=== PATIENT | female | born 1955 | race Caucasian/White ===

== ENCOUNTER 2020-06-19 08:21 | Outpatient (REF) | payer OTHER, SELFPAY ==
--- NOTE | ~2020-06-19 | US_ITS ---
EXAMINATION: US ABDOMEN LIMITED CLINICAL INFORMATION: Right upper quadrant pain. COMPARISON: None. TECHNIQUE: Real-time imaging of the right upper quadrant abdominal viscera. FINDINGS: PANCREAS: Normal. LIVER: There is mild increased liver parenchymal echogenicity. The liver is normal in size. The liver contour is normal. No focal hepatic lesion. There is no intrahepatic biliary duct dilatation seen. GALLBLADDER: Normal. The gallbladder is physiologically distended without evidence of stones, sludge, polyps, wall thickening or pericholecystic fluid. COMMON BILE DUCT: Normal in caliber measuring 0.4 cm in diameter. RIGHT KIDNEY: Normal. No hydronephrosis. No renal calculi or focal parenchymal lesions. The kidney measures 12.0 cm in maximum dimension. FREE FLUID: None. US/US abdomen limited IMPRESSION: Mild hepatic steatosis. No focal lesion seen.
[2020-06-19 11:35] LABS: Glucose Urine UA NEG (NEG); Leukocyte Esterase Urine TRACE (NEG); Nitrite Urine NEG (NEG); Urine Blood NEG (NEG); Urine Ketones NEG (NEG); Urine Protein NEG (NEG-TRACE)
[2020-06-19 11:39] LABS: Appearance Urine HAZY; Color Urine YELLOW
[2020-06-19 11:45] LABS: Mucus Urine 1+ /LPF; RBC Urine 0 /HPF (0); Renal Epithelial Cells Urine 1+ /LPF; Squamous Epithelial Cell Urine 1+ /LPF
== END 2020-06-19 08:22 | disposition home or self-care (01) ==
LOC: HO.HMGCX 08:21
PROVIDERS: PCP Internal Medicine; Visit Provider Internal Medicine
DX: R10.11 Right upper quadrant pain (principal)
CPT/HCPCS: 76705; 81001

== ENCOUNTER 2020-12-23 08:21 | Outpatient (REF) | payer MEDICARE, MEDICAID, SELFPAY ==
[2020-12-23 11:27] LABS: MANUAL DIFF FLAG NO
[2020-12-23 11:37] LABS: Basophils Percent Auto 0.8 % (0-2); Eosinophils Absolute Auto 0.1 X10*3/uL (0.0-0.4); Eosinophils Percent Auto 1.8 % (0-4); Hematocrit 42.8 % (37-47); Hemoglobin 14.1 g/dl (12.0-16.0); Imm Gran Abs Auto 0.02 X10*3/uL (0.00-0.03); Imm Gran Pct Auto 0.4 % (0.0-0.4); Lymphocytes Absolute Auto 1.3 X10*3/uL (1.2-4.9); Lymphocytes Percent Auto 25.9 % (20-40); Mean Corpuscular HGB Conc 32.9 g/dl (31.0-35.0); Mean Corpuscular Hemoglobin 28.5 pg (27.0-33.0); Mean Corpuscular Volume 86.6 fL (80-98); Mean Platelet Volume 10.8 fL (9.4-12.3); Monocytes Absolute Auto 0.4 X10*3/uL (0.1-1.2); Monocytes Percent Auto 8.4 % (2-11); Neutrophils Absolute Auto 3.2 X10*3/uL (2.0-8.3); Neutrophils Percent Auto 62.7 % (45-73); Platelet Count 204 X10*3/uL (160-400); Red Blood Count 4.94 X10*6/uL (4.20-5.50); Red Cell Distribution Width 13.2 % (11.0-16.0); White Blood Count 5.1 X10*3/uL (4.8-10.8)
[2020-12-23 12:03] LABS: Free T4 (Free Thyroxine) 1.08 ng/dL (0.71-1.85); Thyroid Stimulating Hormone 2.28 uIU/mL (0.32-4.0); Vitamin D 25-OH Total 35.6 ng/mL (>30)
[2020-12-23 12:06] LABS: Alanine Aminotransferase 13 U/L (0-31); Albumin Level 4.3 g/dL (3.5-5.0); Alkaline Phosphatase 72 U/L (39-117); Anion Gap 14 (12-20); Aspartate Amino Transferase 16 U/L (5-31); Bilirubin Total 0.5 mg/dL (0.0-1.0); Blood Urea Nitrogen 12 mg/dL (9-16); Calcium 9.5 mg/dL (8.4-10.2); Carbon Dioxide 25 mmol/L (22-29); Chloride 107 mmol/L (96-108); Cholesterol 213 mg/dL; Estimated Glomerular Filt Rate > 60; Glucose Random 91 mg/dL (60-115); HDL Cholesterol 64 mg/dL; LDL Cholesterol Calculated 128 mg/dl; Potassium 4.4 mmol/L (3.3-5.1); Sodium 142 mmol/L (135-145); Total Protein 6.4 g/dL (6.5-8.0); Triglycerides 105 mg/dL
[2020-12-23 12:25] LABS: Folate 11.2 ng/mL (> or = 4.0); Vitamin B12 730 pg/mL (200-900)
== END 2020-12-23 08:22 | disposition home or self-care (01) ==
LOC: HO.HMGCLDS 08:21
PROVIDERS: PCP Internal Medicine; Visit Provider Internal Medicine
DX: I10 Essential (primary) hypertension (principal); K21.9 Gastro-esophageal reflux disease without esophagitis; E78.00 Pure hypercholesterolemia, unspecified
CPT/HCPCS: 36415; 80053; 80061; 82306; 82607; 82746; 84439; 84443; 85025

== ENCOUNTER 2021-03-17 10:07 | Outpatient (REF) | payer MEDICARE, MEDICAID, SELFPAY ==
--- NOTE | ~2021-03-17 | MM_ITS ---
EXAMINATION: MM SCREENING DIGITAL BREAST TOMOSYNTHESIS, BILATERAL CLINICAL INFORMATION: Screening. Asymptomatic. The lifetime risk of breast cancer based on the Tyrer-Cuzick Model is 8%. COMPARISON: Mammography: 09/28/2019, 03/31/2018, 03/09/2017 TECHNIQUE: Digital breast tomosynthesis is performed in both the craniocaudal and mediolateral oblique views along with computer-aided detection (CAD). Synthesized 2D images are generated from the tomosynthesis. Additional left MLO view is provided. FINDINGS: There are scattered areas of fibroglandular density (ACR BI-RADS breast composition Category b). There are no significant masses, abnormal calcifications, or other abnormalities. No developing density. No significant changes. MM/MM tomosynthesis screening BI IMPRESSION: No mammographic evidence of malignancy. ASSESSMENT: BI-RADS 1: Negative RECOMMENDATION: Routine annual mammography screening. This patient's information was entered into a reminder system with a target due date for their next mammogram.
== END 2021-03-17 10:08 | disposition home or self-care (01) ==
LOC: HO.MAMMO 10:07
PROVIDERS: PCP Internal Medicine; Visit Provider Internal Medicine
DX: Z12.31 Encounter for screening mammogram for malignant neoplasm of breast (principal)
CPT/HCPCS: 77063; 77067

== ENCOUNTER 2021-07-04 11:23 | Outpatient (REF) | payer MEDICARE, MEDICAID, SELFPAY ==
--- NOTE | ~2021-07-04 | US_ITS ---
EXAMINATION: US THYROID CLINICAL INFORMATION: Thyroid nodule. COMPARISON: Thyroid ultrasound 02/05/2016 and 01/29/2015. TECHNIQUE: Linear transducer grayscale and color Doppler examination with attention to the region of the thyroid. FINDINGS: SIZE: Measurements of the thyroid lobes and nodules are given in sagittal, anteroposterior and transverse dimensions respectively. Right Thyroid Lobe: 5.1 x 1.2 x 1.7 cm, volume 5.5 mL. Previously 4.9 x 1.1 x 1.8 cm, volume 5.2 mL. Parenchyma: The gland echotexture is homogeneous. Thyroid vascularity is normal. Left Thyroid Lobe: 5.4 x 1.0 x 1.6 cm, volume 4.5 mL. Previously 5.0 x 1.0 x 1.8 cm, volume 4.5 mL. Parenchyma: The gland echotexture is homogeneous. Thyroid vascularity is normal. Isthmus: 0.2 cm in maximum AP dimension. Previously 0.3 cm. Estimated total number of nodules greater than or equal to 1 cm: 0. Drug Regulatory Affairs Specialist nodules are described as follows: 1. Location: Right lower pole. Size: 0.5 x 0.2 x 0.4 cm, volume 0.02 mL. Previously: 0.3 x 0.2 x 0.2 cm, volume 0.01 mL. Nodule characteristics: Composition: Spongiform (0). ACR TI-RADS total points: 0 ACR TI-RADS category: 1 Significant change in size (>/= 20% in 2 dimensions and minimal increase of 2 mm or 50% or greater increase in volume): Change in features: Change in ACR TI-RADS risk category: 2. Location: Left lateral lower pole. Size: 0.4 x 0.2 x 0.3 cm, volume 0.02 mL. Previously: 0.2 x 0.2 x 0.3 cm, volume 0.01 mL. Nodule characteristics: Composition: Spongiform (0). ACR TI-RADS total points: 0 ACR TI-RADS category: 1 Significant change in size (>/= 20% in 2 dimensions and minimal increase of 2 mm or 50% or greater increase in volume): Change in features: Change in ACR TI-RADS risk category: NODES: No lymphadenopathy is seen in the tissue surrounding the thyroid gland. US/US thyroid IMPRESSION: 2 small thyroid nodules not appreciably changed from prior exam. ACR TI-RADS RECOMMENDATION REFERENCE: Ultrasound-guided fine-needle aspiration, followup ultrasound, no further follow up. * TR1 (0 point) and TR 2 (2 points): No FNA or follow up * TR3 (3 points): FNA if more than or equal to 2.5 cm in maximum dimension, followup ultrasound in 1, 3 and 5 years if 1.5 to 2.4 cm in maximum dimension. * TR4 (4-6 points): FNA if more than or equal to 1.5 cm in maximum dimension, followup ultrasound in 1, 2, 3 and 5 years if 1 to 1.4 cm in maximum dimension. * TR5 (more than or equal to 7 points): FNA if more than or equal to 1 cm in maximum dimension, followup ultrasound every year for 5 years if 0.5 to 0.9 cm in maximum dimension. * TR3, TR4 or TR5 nodules that are below the size threshold for follow up receive no follow up.
== END 2021-07-04 11:24 | disposition home or self-care (01) ==
LOC: HO.HMGCX 11:23
PROVIDERS: Visit Provider Internal Medicine
DX: E04.1 Nontoxic single thyroid nodule (principal); M85.80 Other specified disorders of bone density and structure, unspecified site
CPT/HCPCS: 76536

== ENCOUNTER 2021-07-04 14:12 | Outpatient (REF) | payer MEDICARE, MEDICAID, SELFPAY ==
--- NOTE | ~2021-07-04 | MM_ITS ---
EXAMINATION: BONE DENSITOMETRY CLINICAL INDICATION: Osteoporosis. COMPARISON: Previous BD dated 09/28/2019 and baseline BD dated 01/22/2012. TECHNIQUE: Using a [employer] DXA System (software version: 13.1) manufactured by [employer], dual-energy x-ray absorptiometry was performed of the lumbar spine and left hip. The images are of good technical quality. Summary results are attached. FINDINGS: AP SPINE L1-L4: Current: BMD 1.114 g/cm2, Z-score 1.2, T-score -0.6, normal, 2.6% decrease from previous, 10.2% decrease from baseline (<5% change is not significant). Prior: BMD 1.144 g/cm2. Baseline: BMD 1.241 g/cm2. LEFT FEMUR, NECK: Current: BMD 0.689 g/cm2, Z-score -0.9, T-score -2.5, osteoporosis. Prior: BMD 0.705 g/cm2. Baseline: BMD 0.809 g/cm2. LEFT FEMUR, TOTAL: Current: BMD 0.817 g/cm2, Z-score -0.2, T-score -1.5, osteopenia, 0.1% decrease from previous, 12.5% decrease from baseline (<5% change is not significant). Prior: BMD 0.818 g/cm2. Baseline: BMD 0.934 g/cm2. IDENTIFIED RISK FACTORS: Menopause, right oophorectomy. HISTORY OF FRACTURE: None listed. MEDICATIONS: Calcium, vitamin D. MM/XR DEXA axial skeleton IMPRESSION: 1. DIAGNOSIS: Osteoporosis based on the lowest T-score value of -2.5 in the femoral neck applying World Health Organization criteria. 2. 10-YEAR FRACTURE RISK PREDICTION, FRAX: According to the guidelines, FRAX calculation should only be performed on patients in the osteopenia bone density category. Therefore, FRAX was not performed on this patient. 3. Treatment Recommendations: NOF guidelines recommend consideration for treatment in postmenopausal women and men age 50 and older presenting with the following: -A hip or vertebral (clinical or morphometric) fracture. -T-score less than or equal to -2.5 at the femoral neck or spine after appropriate evaluation to exclude secondary causes. -Low bone mass at the hip or spine and a 10-year fracture probability by FRAX of greater than or equal to 3% for hip fracture or greater than or equal to 20% for major osteoporotic fracture based on the [place] adapted WHO algorithm. 4. Other Recommendations: All treatment decisions require clinical judgment and consideration of individual patient factors, including patient preferences, comorbidities, previous drug use, risk factors not captured in the FRAX model (e.g. frailty, falls, vitamin D deficiency, increased bone turnover, interval significant decline in bone density) and possible under or overestimation of fracture risk by FRAX. Additional medical evaluation for secondary cause of low bone mineral density may be appropriate. FUTURE SCAN RECOMMENDATION: People with diagnosed cases of osteoporosis or at high risk for fracture should have regular bone mineral density tests. For patients eligible for Medicare, routine testing is allowed once every 2 years. The testing frequency can be increased to one year for patients who have rapidly progressing disease, those who are receiving or discontinuing medical therapy to restore bone mass, or have additional risk factors.
== END 2021-07-04 14:13 | disposition home or self-care (01) ==
LOC: HO.MAMMO 14:12
PROVIDERS: Visit Provider Internal Medicine
DX: Z13.820 Encounter for screening for osteoporosis (principal); M81.0 Age-related osteoporosis without current pathological fracture; Z78.0 Asymptomatic menopausal state; Z98.890 Other specified postprocedural states
CPT/HCPCS: 77080

== ENCOUNTER 2022-05-14 14:22 | Outpatient (REF) | payer MEDICARE, MEDICAID, SELFPAY ==
--- NOTE | ~2022-05-14 | MM_ITS ---
EXAMINATION: MM SCREENING DIGITAL BREAST TOMOSYNTHESIS, BILATERAL CLINICAL INFORMATION: Screening. Asymptomatic. The lifetime risk of breast cancer based on the Tyrer-Cuzick Model is 8.0%. COMPARISON: Mammography: 03/17/2021 and studies dating back to 02/21/2016. TECHNIQUE: Digital breast tomosynthesis is performed in both the craniocaudal and mediolateral oblique views along with computer-aided detection (CAD). Synthesized 2D images are generated from the tomosynthesis. FINDINGS: There are scattered areas of fibroglandular density (ACR BI-RADS breast composition Category b). LEFT BREAST: There is a stable parenchymal pattern within the left breast. RIGHT BREAST: Within the inferior medial aspect of the right breast there is a 4 cm ill-defined density with a single calcification within it approximately 5 cm from the nipple for which spot compression views are recommended. MM/MM tomosynthesis screening BI IMPRESSION: Right breast density for further evaluation. ASSESSMENT: BI-RADS 0: Incomplete - Need Additional Imaging Evaluation RECOMMENDATION: 1. Additional views of the right breast. 2. Targeted ultrasound if warranted after review of the additional views. 3. Radiology department staff will contact the patient for additional imaging.
== END 2022-05-14 14:23 | disposition home or self-care (01) ==
LOC: HO.MAMMO 14:22
PROVIDERS: Visit Provider Internal Medicine
DX: Z12.31 Encounter for screening mammogram for malignant neoplasm of breast (principal)
CPT/HCPCS: 77063; 77067

== ENCOUNTER 2022-06-03 13:12 | Outpatient (REF) | payer MEDICARE, MEDICAID, SELFPAY ==
--- NOTE | ~2022-06-03 | MM_ITS ---
EXAMINATION: MM DIAGNOSTIC DIGITAL BREAST TOMOSYNTHESIS, RIGHT US BREAST, TARGETED, RIGHT CLINICAL INFORMATION: Question density inferior medial aspect of the right breast. COMPARISON: Mammography: 05/14/2022 and studies dating back to 09/11/2013. TECHNIQUE: Digital breast tomosynthesis is performed. 2D images are generated from the tomosynthesis. The following views are obtained: Spot compression views of the right breast in craniocaudal and 90 degree mediolateral views. FINDINGS: MAMMOGRAM: There are scattered areas of fibroglandular density (ACR BI-RADS breast composition Category b). Spot compression view of the right breast in 90 degree mediolateral view demonstrates a density which is well-circumscribed with what appears be slightly lobular appearance however this also appears be related to a turn of vessels on tomosynthesis view. On craniocaudal view there is a question of a single calcification about a faintly seen density which is adjacent to the vessels but which may represent parenchyma rather than a mass. ULTRASOUND: Targeted right breast ultrasound about the inferior medial aspect 5 o'clock approximately 3 cm from the nipple a well-circumscribed hypoechoic structure measuring 3 x 2 x 2 mm in size which is wider than it is tall without internal vasculature. No sound enhancement. No significant distal sound shadowing is appreciated about the smooth back wall. This may represent a cystic structure but is too small to characterize as to whether it is a cyst or solid structure. This may or may not correspond to the mammographic finding. Recommend 6 month follow-up right breast mammogram with targeted ultrasound evaluation to ensure stability. Results are discussed with the patient at time of visit. MM/MM tomosynthesis added views R IMPRESSION: Right breast density for 6 month follow-up study as described. ASSESSMENT: BI-RADS 3: Probably Benign RECOMMENDATION: Diagnostic mammography and ultrasound in 6 months. This patient's information was entered into a reminder system with a target due date for their next mammogram.
== END 2022-06-03 13:13 | disposition home or self-care (01) ==
LOC: HO.MAMMO 13:12
PROVIDERS: Visit Provider Internal Medicine
DX: R92.2 Inconclusive mammogram (principal)
CPT/HCPCS: 76642; 77061; 77065

== ENCOUNTER → 2022-09-23 12:58 | Outpatient (BNVA) | payer MEDICARE, MEDICAID, SELFPAY | PROVIDERS: PCP Internal Medicine; Visit Provider Obstetrics & Gynecology | DX: Z01.419 Encounter for gynecological examination (general) (routine) without abnormal findings (principal); M81.0 Age-related osteoporosis without current pathological fracture; E55.9 Vitamin D deficiency, unspecified; Z90.721 Acquired absence of ovaries, unilateral; Z78.0 Asymptomatic menopausal state | CPT/HCPCS: 99202; G0101 ==

== ENCOUNTER 2022-11-16 17:21 | Outpatient (AMB) | payer MEDICARE, MEDICAID, SELFPAY ==
--- NOTE | 2022-11-16 17:38 | A.OFFVIS_ITS ---
Intake Vital Signs 11/16/22 17:39 Height 5 ft 6 in Weight 135 lb BMI 21.8 BP 138/76 Blood Pressure Location Lt brachial Position Sitting Pulse 79 Pulse Source Pulse Oximeter Pulse Oximetry (%) 98 Oxygen Delivery Method Room Air Intake Visit Reasons: AWV Allergies codeine Allergy (Unknown, Verified 11/16/22 17:40) Unknown Medication List - Last Reconciled 11/16/22 by Kenneth Gomez MD cholecalciferol (vitamin D3) 25 mcg PO DAILY famotidine (Pepcid) 20 mg PO BEDTIME PRN hydrocortisone 2.5% (Proctosol HC) 1 appl HI BID-QID PRN loratadine (Claritin) 10 mg PO DAILY vitamin B complex 1 tab PO DAILY HPI AWV HPI Details 67-year-old female with GERD hypertension osteopenia thyroid nodule coming in for annual well visit patient was last seen in May 2021. Cologuard is up-to-date mammograms up-to-date bone density date June 2021 patient has osteoporosis. derm skin cancer seeing dermatology [facility] mohs surgery scalp. decline pneumonia shot PFSH Medical History (Updated 11/16/22 @ 17:58 by Kenneth Gomez MD) Annual physical exam Annual physical exam Anxiety Breast cancer screening Colon cancer screening Colonoscopy refused GERD (gastroesophageal reflux disease) Hemorrhoid Hypertension Osteopenia Osteopenia RUQ abdominal pain Thyroid nodule Vitamin D deficiency Well woman exam Surgical History History of right oophorectomy Family History Father Hypertension Mother Breast cancer Colon cancer Sister Ovarian cancer Maternal Grandmother Myocardial infarction Maternal Grandfather Myocardial infarction Paternal Uncle Myocardial infarction Social History Housing: House Alcohol intake: never Patient Tobacco Use Status: Former Tobacco user Tobacco use type: Cigarette Years Smoked: quit 1982 e-Cigarette/Vaping Use: Never Used Second Hand Smoke Exposure: No service: No Current occupational status: retired Female Reproductive History Menstrual Age of Menarche: 14 Questionnaire Medicare Wellness Checkup What [age] 65-69 What gender do you identify with?: female During the past 4 weeks, how much have you been bothered by emotional problems such as feeling anxious, depressed, irritable, sad or downhearted, and blue?: not at all During the past 4 weeks, has your physical & emotional health limited your social activities with family, friends, neighbors, or groups?: not at all During the past 4 weeks, how much bodily pain have you generally had?: no pain During the past 4 weeks, was someone available to help you if you needed & wanted help?: yes, as much as I wanted During the past 4 weeks, what was the hardest physical activity you could do for at least 2 minutes?: very heavy Can you get to places out of walking distance without help? (For eg., can you travel alone on buses, taxis or drive your car?): Yes Can you go shopping for groceries or clothes without someone's help?: Yes Can you prepare your own meals?: Yes Can you do your housework without help?: Yes Because of any health problems, do you need the help of another person with your personal care needs such as eating, bathing, dressing or getting around the house?: No Can you handle your own money without help?: Yes During the past 4 weeks, how would you rate your health in general?: excellent During the past 4 weeks how have things been going for you?: very well; could hardly better Are you having difficulties driving your car?: yes, often Do you always fasten your seat belt when you are in a car?: yes, usually During past 4 weeks, have you been bothered by the following: never: Falling or dizzy when standing up, Sexual problems?, Trouble eating well?, Teeth or denture problems?, Problems using the telephone? and Tiredness or fatigue? Have you fallen 2 or more times in the past year?: No Are you afraid of falling?: No Are you a smoker?: no During the past 4 weeks, how many drinks of wine, beer, or other alcoholic beverages did you have?: 1 drink or less per week Do you exercise for about 20 minutes 3 or more times a week?: yes, all the time Have you been given information to help with the following?: no: Hazards in your house that might hurt you? and no: Keeping track of your medications? How often do you have trouble taking medicines the way you have been told to take them?: I do not have to take medicine How confident are you that you can control & manage most of your health problems?: very confident What is your race?: White PHQ-9 Over the last 2 weeks, how often have you been bothered by any of the following problems? 1. Little interest or pleasure in doing things: not at all 2. Feeling down, depressed, or hopeless: not at all 3. Trouble falling or staying asleep, or sleeping too much: not at all 4. Feeling tired or having little energy: not at all 5. Poor appetite or overeating: not at all 6. Feeling bad about yourself - or that you are a failure or have let yourself or your family down: not at all 7. Trouble concentrating on things, such as reading the newspaper or watching television: not at all 8. Moving or speaking so slowly that other people could have noticed. Or the opposite - being so fidgety or restless that you have been moving around a lot more than usual: not at all 9. Thoughts that you would be better off or of hurting yourself in some way: not at all Total score: 0 Depression Screening Interpretation: Negative Source: Developed by Drs. Binu Bolanos, Jordyn Blanchard, Casey Macias and colleagues, with an educational sharif from [employer]. Thrive Questionnaire Date Thrive assessed: 11/16/22 I am a: Patient What is your living situation today?: I have a steady place to live Within the past 12 months, did the food you bought not last and you didn't have the money to get more?: Never true Within the past 12 months, did you worry whether your food would run out before you got money to buy more?: Never true Do you have trouble paying for medicines?: No Do you have trouble getting transportation to medical appointments?: No Do you have trouble paying your heating and electricity bill?: No Do you have trouble taking care of your child, family member or friend?: No Do you have trouble with day-to-day activities such as bathing, preparing meals, shopping, managing finances, etc.?: No Are you currently unemployed and looking for a job?: No Are you interested in more education?: No Currently or been in a relationship where the following occur: no concerns reported MILAN-7 AMB Questionnaire MILAN-7 Date MILAN - 7 assessed: 11/16/22 Feeling nervous, anxious, or on edge: 0 = Not at all Not being able to stop or control worryin = Not at all Worrying too much about different things: 0 = Not at all Trouble relaxin = Not at all Being so restless that it is hard to sit still: 0 = Not at all Becoming easily annoyed or irritable: 0 = Not at all Feeling afraid as if something awful might happen: 0 = Not at all Total MILAN-7 score (0-4 normal; 5-9 mild; 10-14 moderate; 15-21 severe): 0 Source: Developed by Drs. Binu Bolanos, Jordyn Blanchard, Casey Macias and colleagues, with an educational sharif from [employer]. Review of Systems Const Denies poor appetite and Denies weakness Eyes Denies no additional complaints ENT Reports Normal hearing present, Denies dizziness, Denies nasal congestion, Denies tinnitus and Denies sore throat Card Denies chest pain, Denies syncope, Denies rapid heart rate and Denies dyspnea Resp Denies cough and Denies dyspnea GI Denies change in stool character, Reports constipation, Denies diarrhea, Denies nausea and Denies vomiting Denies urinary frequency, Denies difficulty voiding and Denies dysuria Neuro Reports Normal hearing present, Denies confusion, Denies dizziness, Denies syncope and Denies weakness Psych Denies confusion Physical Exam Vital Signs: Last Vital Signs Pulse 79 11/16/22 17:39 BP 138/76 11/16/22 17:39 Pulse Ox 98 11/16/22 17:39 Oxygen Delivery Method Room Air 11/16/22 17:39 BMI result Body Mass Index 21.8 Const General: No confusion Orientation/consciousness: No confusion HEENT Head: Yes normocephalic Ears: external ears normal and TM's normal bilaterally Face and sinus: Yes normal facial exam Mouth: moist mucous membranes Throat: Yes tonsils normal Eyes Conjunctivae: conjunctivae normal Pupils: Equal, round and reactive pupils present and Pupil accommodation reflex normal Direct Ophthalmoscopy: normal light reflex Neck Neck: No lymphadenopathy Thyroid: Thyroid normal Chest Chest palpation & inspection: normal inspection of the chest Resp Effort & Inspection: normal respiratory effort and no audible wheezes Auscultation: clear to auscultation bilaterally, no crackles, no wheezes and lung sounds not diminished Cardio Rate: regular rate Rhythm: regular rhythm Peripheral pulses: radial pulses present and dorsalis pedis present GI Palpation (GI): no masses Auscultation: normal bowel sounds and normoactive bowel sounds Rectal Exam - Female: deferred Skin General skin exam: no rashes or lesions noted Rashes: no rashes Neuro General: No confusion Cranial nerves: Yes Equal, round and reactive pupils present and Yes Normal hearing present Cognition (Neuro): normal cognition Gait exam (Neuro): Normal gait present Motor exam (neuro): 5/5 motor strength present throughout Deep tendon reflexes (DTR's): Right brachioradialis reflex intensity grade: 2+, Left brachioradialis reflex intensity grade: 2+, Right patellar reflex intensity grade: 2+ and Left patellar reflex intensity grade: 2+ Extrem General: No edema Assessment & Plan Assessment & Plan (1) Medicare annual wellness visit, initial: Code(s): Z00.00 - Encounter for general adult medical examination without abnormal findings (2) Osteoporosis: Comment: June 2021 Code(s): M81.0 - Age-related osteoporosis without current pathological fracture Plan: June 2021 discussed about treatment of osteoporosis (3) Thyroid nodule: Comment: 2015 no suspicious lesion June 2021 no change Code(s): E04.1 - Nontoxic single thyroid nodule Plan: Stable on repeat ultrasound (4) Cervical cancer screening: Code(s): Z12.4 - Encounter for screening for malignant neoplasm of cervix Plan: Reminded about cervical cancer screening (5) GERD (gastroesophageal reflux disease): Code(s): K21.9 - Gastro-esophageal reflux disease without esophagitis Qualifiers: Esophagitis presence: without esophagitis Qualified Code(s): K21.9 - Gastro-esophageal reflux disease without esophagitis Plan: Avoid the foods that causes that usually spicy foods, tomato products, juices, coffee, soda and foods that your sensitive to. After eating do not lie down, allow 3-4 hours before in lie down. And keep the head of bed above 30 degrees to avoid the acid from going up. (6) Hypertension: Code(s): I10 - Essential (primary) hypertension Qualifiers: Hypertension type: essential hypertension Qualified Code(s): I10 - Essential (primary) hypertension Plan: Blood pressure is under control without any medication Orders: Orders Vitamin B12 and Folate Today E04.1 - Nontoxic single thyroid nodule Comprehensive Met. Panel Today M81.0 - Age-related osteoporosis without current pathological fracture Lipid Panel Today E04.1 - Nontoxic single thyroid nodule, E78.00 - Pure hypercholesterolemia, unspecified Free T4 (Free Thyroxine) Today M81.0 - Age-related osteoporosis without current pathological fracture Thyroid Stimulating Hormone Today M81.0 - Age-related osteoporosis without current pathological fracture Vitamin D 25-OH Total Today E04.1 - Nontoxic single thyroid nodule Complete Blood Count Auto Diff Today M81.0 - Age-related osteoporosis without current pathological fracture Quality Reporting (2020) Depression/Bipolar (159/160/161/177) PHQ-9: Total score: 0 Coding Level of Care Code Medicare First (G0438) Diagnoses Medicare annual wellness visit, initial Z00.00 Osteoporosis M81.0 Thyroid nodule E04.1 Cervical cancer screening Z12.4 GERD (gastroesophageal reflux disease) K21.9 Esophagitis presence: without esophagitis Hypertension I10 Hypertension type: essential hypertension
[2022-11-16 17:39] VITALS: BP 138/76; PULSE 79; O2SAT 98; BMI 21.8
== END 2022-11-16 18:23 | disposition home or self-care (01) ==
PROVIDERS: Visit Provider Internal Medicine
DX: Z00.00 Encounter for general adult medical examination without abnormal findings (principal); E04.1 Nontoxic single thyroid nodule; K21.9 Gastro-esophageal reflux disease without esophagitis; I10 Essential (primary) hypertension; M81.0 Age-related osteoporosis without current pathological fracture; Z12.4 Encounter for screening for malignant neoplasm of cervix
CPT/HCPCS: G0438

== ENCOUNTER 2023-01-04 14:19 | Outpatient (REF) | payer MEDICARE, MEDICAID, SELFPAY ==
--- NOTE | ~2023-01-04 | MM_ITS ---
EXAMINATION: MM DIAGNOSTIC DIGITAL BREAST TOMOSYNTHESIS, RIGHT US BREAST LIMITED, RIGHT MAMMOGRAPHY: CLINICAL INFORMATION: 6 month follow-up right breast nodule lower inner aspect, middle one third. COMPARISON: Mammography: Mammography dated 06/03/2022, and 05/14/2022. Ultrasound dated 06/03/2022. TECHNIQUE: Digital right breast tomosynthesis is performed in both the craniocaudal and mediolateral oblique views along with computer-aided detection (CAD). Synthesized 2D images are generated from the tomosynthesis. FINDINGS: There are scattered areas of fibroglandular density (ACR BI-RADS breast composition Category b). There are vascular calcifications again demonstrated. The parenchymal pattern is stable from prior exams. There is redemonstration of a small oval nodule with a central calcification seen at the 5:00 axis of the right breast, 3 cm from the nipple. It appears unchanged from prior exams dating back to 06/01/2022. It remains probably benign, and 6 month interval follow-up right breast mammography recommended. ULTRASOUND: CLINICAL INFORMATION: 6 month follow-up right breast complex cyst lower inner aspect, middle one third. COMPARISON: 06/03/2022, 05/14/2022. TECHNIQUE: Targeted sonographic evaluation was performed using a high frequency linear transducer. Attention was made to the 5:00 axis of the right breast, approximately 6 3 cm from the nipple. Selected archived documentation. FINDINGS: RIGHT BREAST: There is a stable oval minimally complicated cyst at the 5:00 axis of the right breast, 3 cm from the nipple, measuring a stable 3 x 3 x 2 mm. There is a central specular echo which may represent the calcifications seen centrally within the lesion on the corresponding mammogram. This has a probably benign appearance with good through transmission and no internal color flow. Recommend six-month interval follow-up right breast ultrasound with attention to this region to ensure stability. No additional findings identified. MM/MM tomosynthesis diagnostic RT IMPRESSION: Probably benign findings right breast on both mammography and ultrasonography. Six-month follow-up ultrasound and mammogram recommended of the right breast, 1 the patient is due for bilateral screening. OVERALL ASSESSMENT: Mammography: BI-RADS 3 - Probably benign finding(s) - 6 month follow-up suggested Ultrasound: BI-RADS 3 - Probably benign finding(s) - 6 month follow-up suggested RECOMMENDATION: 6 Month F/U Results were provided to the patient at time of visit by the technologist. This patient's information was entered into a reminder system with a target due date for their next mammogram.
== END 2023-01-04 14:20 | disposition home or self-care (01) ==
LOC: HO.MAMMO 14:19
PROVIDERS: Visit Provider Internal Medicine
DX: N63.14 Unspecified lump in the right breast, lower inner quadrant (principal)
CPT/HCPCS: 76642; 77061; 77065

== ENCOUNTER → 2023-01-04 14:30 | Outpatient (BNV) | payer MEDICARE, MEDICAID, SELFPAY | PROVIDERS: Visit Provider Radiology Diagnostic Radiology | DX: R92.1 Mammographic calcification found on diagnostic imaging of breast (principal) | CPT/HCPCS: 76642; 77061; 77065; G0279 ==

== ENCOUNTER 2023-07-06 13:48 | Outpatient (REF) | payer OTHER, SELFPAY ==
--- NOTE | ~2023-07-06 | MM_ITS ---
EXAMINATION: MM DIAGNOSTIC DIGITAL BREAST TOMOSYNTHESIS, BILATERAL US BREAST LIMITED, RIGHT MAMMOGRAPHY: CLINICAL INFORMATION: Six-month follow-up right breast complicated cyst lower inner aspect 4 x 3 x 2 mm, middle one third depth. Patient also due for bilateral screening. COMPARISON: Mammography: 01/04/2023, 06/03/2022, 03/27/2021, 04/29/2019, and dating back to 2017. TECHNIQUE: Digital breast tomosynthesis is performed in both the craniocaudal and mediolateral oblique views along with computer-aided detection (CAD). Synthesized 2D images are generated from the tomosynthesis. FINDINGS: There are scattered areas of fibroglandular density (ACR BI-RADS breast composition Category b). There are bilateral vascular calcifications, similar. In the lower inner right breast, middle one third, there is a similar low density focal asymmetry which is circumscribed, oval, contains a punctate calcification, consistent with the known small complicated cyst. This appears unchanged. Otherwise, no suspicious masses, suspicious grouped calcifications, or new areas of architectural distortion. Parenchymal pattern is unchanged from priors. No skin or axillary abnormalities. ULTRASOUND: CLINICAL INFORMATION: As above. COMPARISON: 06/03/2022 right breast ultrasound TECHNIQUE: Targeted sonographic evaluation was performed using a high frequency linear transducer. Attention was given to the 5:00 axis of the right breast in the region of known complicated cyst. Selected archived documentation. FINDINGS: RIGHT BREAST: -There is a stable 4 x 3 x 3 mm minimally complicated cyst with a solitary internal punctate calcification. This appears entirely unchanged. There is through transmission. There is no color vascular flow. There is no surrounding echogenic fat. This remains probably benign. One-year follow-up recommended. MM/MM tomosynthesis diagnostic BI IMPRESSION: There are no findings suspicious for malignancy in either breast. There is a stable minimally complicated cyst in the right breast 5:00 axis, 3 cm from nipple, measuring 4 x 3 x 3 mm. One-year follow-up targeted right breast ultrasound recommended when the patient is due for bilateral screening to establish two-year stability and benignity. OVERALL ASSESSMENT: Mammography: BI-RADS 3 - Probably benign finding(s) - 12 month follow-up suggested Ultrasound: BI-RADS 3 - Probably benign finding(s) - 12 month follow-up suggested RECOMMENDATION: 12 month diagnostic follow up Results were provided to the patient at time of visit by the technologist. This patient's information was entered into a reminder system with a target due date for their next mammogram.
== END 2023-07-06 13:49 | disposition home or self-care (01) ==
LOC: HO.MAMMO 13:48
PROVIDERS: PCP Internal Medicine; Visit Provider Internal Medicine
DX: R92.2 Inconclusive mammogram (principal)
CPT/HCPCS: 76642; 77062; 77066

== ENCOUNTER → 2023-07-06 14:00 | Outpatient (BNV) | payer OTHER, SELFPAY | PROVIDERS: PCP Internal Medicine; Visit Provider Radiology Diagnostic Radiology | DX: N60.01 Solitary cyst of right breast (principal); R92.323 Mammographic fibroglandular density, bilateral breasts; R92.1 Mammographic calcification found on diagnostic imaging of breast | CPT/HCPCS: 76642; 77066; G0279 ==

== ENCOUNTER 2023-09-10 08:23 | Outpatient (REF) | payer OTHER, SELFPAY ==
[2023-09-10 10:15] LABS: MANUAL DIFF FLAG NO
[2023-09-10 10:33] LABS: Basophils Percent Auto 0.6 % (0-2); Eosinophils Absolute Auto 0.1 X10*3/uL (0.0-0.4); Eosinophils Percent Auto 1.2 % (0-4); Hematocrit 43.3 % (37.0-47.0); Hemoglobin 14.2 g/dl (12.0-16.0); Imm Gran Abs Auto 0.01 X10*3/uL (0.00-0.03); Imm Gran Pct Auto 0.2 % (0.0-0.4); Lymphocytes Absolute Auto 1.5 X10*3/uL (1.2-4.9); Lymphocytes Percent Auto 29.9 % (20-40); Mean Corpuscular HGB Conc 32.8 g/dl (31.0-35.0); Mean Corpuscular Hemoglobin 28.2 pg (27.0-33.0); Mean Corpuscular Volume 85.9 fL (80.0-98.0); Mean Platelet Volume 10.9 fL (9.4-12.3); Monocytes Absolute Auto 0.5 X10*3/uL (0.1-1.2); Monocytes Percent Auto 9.8 % (2-11); Neutrophils Percent Auto 58.3 % (45-73); Platelet Count 202 X10*3/uL (160-400); Red Blood Count 5.04 X10*6/uL (4.20-5.50); White Blood Count 5.1 X10*3/uL (4.8-10.8)
[2023-09-10 10:54] LABS: Alanine Aminotransferase 11 U/L (0-31); Albumin Level 4.2 g/dL (3.5-5.0); Alkaline Phosphatase 68 U/L (39-117); Anion Gap 12 (12-20); Aspartate Amino Transferase 16 U/L (5-31); Bilirubin Total 0.5 mg/dL (0.0-1.0); Blood Urea Nitrogen 18 mg/dL (9-16); Calcium 9.5 mg/dL (8.4-10.2); Carbon Dioxide 27 mmol/L (22-29); Chloride 107 mmol/L (96-108); Cholesterol 195 mg/dL (<200); Estimated Glomerular Filt Rate > 60; Glucose Random 86 mg/dL (60-115); HDL Cholesterol 59 mg/dL (>40); LDL Cholesterol Calculated 118 mg/dL (<100); Potassium 3.5 mmol/L (3.3-5.1); Sodium 142 mmol/L (135-145); Total Protein 6.6 g/dL (6.5-8.0); Triglycerides 93 mg/dL (<150)
[2023-09-10 11:01] LABS: Free T4 (Free Thyroxine) 1.01 ng/dL (0.71-1.85); Thyroid Stimulating Hormone 3.92 uIU/mL (0.32-4.0)
[2023-09-10 11:20] LABS: Folate 7.6 ng/mL (> or = 4.0); Vitamin B12 446 pg/mL (200-900)
== END 2023-09-10 08:24 | disposition home or self-care (01) ==
LOC: HO.HMGCLDS 08:23
PROVIDERS: PCP Internal Medicine; Visit Provider Internal Medicine
DX: M81.0 Age-related osteoporosis without current pathological fracture (principal); E04.1 Nontoxic single thyroid nodule; E78.00 Pure hypercholesterolemia, unspecified
CPT/HCPCS: 36415; 80053; 80061; 82306; 82607; 82746; 84439; 84443; 85025

== ENCOUNTER 2023-11-30 13:51 | Outpatient (AMB) | payer OTHER, SELFPAY ==
[2023-11-30 13:51] VITALS: BP 136/82; PULSE 74; O2SAT 98; BMI 21.4
--- NOTE | 2023-11-30 13:51 | A.OFFVIS_ITS ---
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 Patient is here for annual well visit. Patient's Cologuard 07/30/2020 mammogram is up-to-date bone density is due. [facility] Medical History (Updated 11/30/23 @ 14:29 by Kenneth Gomez MD) Colon cancer screening Hemorrhoid Well woman exam Osteopenia Annual physical exam Breast cancer screening RUQ abdominal pain Annual physical exam GERD (gastroesophageal reflux disease) Colonoscopy refused Anxiety Hypertension Osteopenia Vitamin D deficiency Thyroid nodule Surgical History History of right oophorectomy Family History Father Hypertension Mother Breast cancer Colon cancer Sister Ovarian cancer Maternal Grandmother Myocardial infarction Maternal Grandfather Myocardial infarction Paternal Uncle Myocardial infarction Social History (Updated 11/30/23 @ 14:29 by Kenneth Gomez MD) Housing: House Alcohol intake: never Patient Tobacco Use Status: Former Tobacco user Tobacco use type: Cigarette Years Smoked: quit 1982, marijuana e-Cigarette/Vaping Use: Never Used Second Hand Smoke Exposure: No service: No Current occupational status: retired Female Reproductive History Menstrual Age of Menarche: 14 Questionnaire Medicare Wellness Checkup What [age] What gender do you identify with?: female During the past 4 weeks, how much have you been bothered by emotional problems such as feeling anxious, depressed, irritable, sad or downhearted, and blue?: not at all During the past 4 weeks, has your physical & emotional health limited your social activities with family, friends, neighbors, or groups?: not at all During the past 4 weeks, how much bodily pain have you generally had?: very mild pain During the past 4 weeks, was someone available to help you if you needed & wanted help?: yes, as much as I wanted During the past 4 weeks, what was the hardest physical activity you could do for at least 2 minutes?: very heavy Can you get to places out of walking distance without help? (For eg., can you travel alone on buses, taxis or drive your car?): Yes Can you go shopping for groceries or clothes without someone's help?: Yes Can you prepare your own meals?: Yes Can you do your housework without help?: Yes Because of any health problems, do you need the help of another person with your personal care needs such as eating, bathing, dressing or getting around the house?: No Can you handle your own money without help?: Yes During the past 4 weeks, how would you rate your health in general?: very good During the past 4 weeks how have things been going for you?: pretty well Are you having difficulties driving your car?: no Do you always fasten your seat belt when you are in a car?: yes, usually During past 4 weeks, have you been bothered by the following: never: Falling or dizzy when standing up, Sexual problems?, Trouble eating well?, Teeth or denture problems?, Problems using the telephone? and Tiredness or fatigue? Have you fallen 2 or more times in the past year?: No Are you afraid of falling?: No Are you a smoker?: no During the past 4 weeks, how many drinks of wine, beer, or other alcoholic beverages did you have?: no alcohol at all Do you exercise for about 20 minutes 3 or more times a week?: yes, most of the time Have you been given information to help with the following?: no: Hazards in your house that might hurt you? and no: Keeping track of your medications? How often do you have trouble taking medicines the way you have been told to take them?: I do not have to take medicine How confident are you that you can control & manage most of your health problems?: very confident What is your race?: White PHQ-9 Over the last 2 weeks, how often have you been bothered by any of the following problems? 1. Little interest or pleasure in doing things: not at all 2. Feeling down, depressed, or hopeless: not at all 3. Trouble falling or staying asleep, or sleeping too much: not at all 4. Feeling tired or having little energy: not at all 5. Poor appetite or overeating: not at all 6. Feeling bad about yourself - or that you are a failure or have let yourself or your family down: not at all 7. Trouble concentrating on things, such as reading the newspaper or watching television: not at all 8. Moving or speaking so slowly that other people could have noticed. Or the opposite - being so fidgety or restless that you have been moving around a lot more than usual: not at all 9. Thoughts that you would be better off or of hurting yourself in some way: not at all Total score: 0 Depression Screening Interpretation: Negative Depression Screening Done: Yes Source: Developed by Drs. Binu Bolanos, Jordyn Blanchard, Casey Macias and colleagues, with an educational sharif from [employer]. PHQ-2/PHQ-9 PHQ-2 Over the last 2 weeks, how often have you been bothered by any of the following problems? 1. Little interest or pleasure in doing things: not at all 2. Feeling down, depressed, or hopeless: not at all Total score: 0 If score is 3 or greater, continue 3. Trouble falling or staying asleep, or sleeping too much: not at all 4. Feeling tired or having little energy: not at all 5. Poor appetite or overeating: not at all 6. Feeling bad about yourself - or that you are a failure or have let yourself or your family down: not at all 7. Trouble concentrating on things, such as reading the newspaper or watching television: not at all 8. Moving or speaking so slowly that other people could have noticed. Or the opposite - being so fidgety or restless that you have been moving around a lot more than usual: not at all 9. Thoughts that you would be better off or of hurting yourself in some way: not at all Total score: 0 0-4 None-Minimal, 5-9 Mild, 10-14 Moderate, 15-19 Moderately Severe, 20-27 Severe Source: Developed by Drs. Binu Bolanos, Jordyn Blanchard, Casey Macias and colleagues, with an educational sharif from [employer]. Thrive Questionnaire Date Thrive assessed: 11/30/23 I am a: Patient What is your living situation today?: I have a steady place to live Within the past 12 months, did the food you bought not last and you didn't have the money to get more?: Never true Within the past 12 months, did you worry whether your food would run out before you got money to buy more?: Never true Do you have trouble paying for medicines?: No Do you have trouble getting transportation to medical appointments?: No Do you have trouble paying your heating and electricity bill?: No Do you have trouble taking care of your child, family member or friend?: No Do you have trouble with day-to-day activities such as bathing, preparing meals, shopping, managing finances, etc.?: No Are you currently unemployed and looking for a job?: No Are you interested in more education?: No Please select the resources that you would like help with: None Currently or been in a relationship where the following occur: No concerns reported THRIVE Score: 0 MILAN-7 AMB Questionnaire MILAN-7 Date MILAN - 7 assessed: 11/30/23 Feeling nervous, anxious, or on edge: 0 = Not at all Not being able to stop or control worryin = Not at all Worrying too much about different things: 0 = Not at all Trouble relaxin = Not at all Being so restless that it is hard to sit still: 0 = Not at all Becoming easily annoyed or irritable: 0 = Not at all Feeling afraid as if something awful might happen: 0 = Not at all Total MILAN-7 score (0-4 normal; 5-9 mild; 10-14 moderate; 15-21 severe): 0 Source: Developed by Drs. Binu Bolanos, Jordyn Blanchard, Casey Macias and colleagues, with an educational sharif from [employer]. Review of Systems Const Denies poor appetite and Denies weakness Eyes Denies no additional complaints ENT Reports Normal hearing present, Denies dizziness, Denies nasal congestion, Denies tinnitus and Denies sore throat Card Denies chest pain, Denies syncope, Denies rapid heart rate and Denies dyspnea Resp Denies cough and Denies dyspnea GI Denies change in stool character, Reports constipation, Denies diarrhea, Denies nausea and Denies vomiting Denies urinary frequency, Denies difficulty voiding and Denies dysuria Neuro Reports Normal hearing present, Denies confusion, Denies dizziness, Denies syn cope and Denies weakness Psych Denies confusion Physical Exam Vital Signs: Last Vital Signs Pulse 74 11/30/23 13:51 BP 136/82 11/30/23 13:51 Pulse Ox 98 11/30/23 13:51 Oxygen Delivery Method Room Air 11/30/23 13:51 BMI result Body Mass Index 21.4 Const General: No confusion Orientation/consciousness: No confusion HEENT Head: Yes normocephalic Ears: external ears normal and TM's normal bilaterally Face and sinus: Yes normal facial exam Mouth: moist mucous membranes Throat: Yes tonsils normal Eyes Conjunctivae: conjunctivae normal Pupils: Equal, round and reactive pupils present and Pupil accommodation reflex normal Direct Ophthalmoscopy: normal light reflex Neck Neck: No lymphadenopathy Thyroid: Thyroid normal Chest Chest palpation & inspection: normal inspection of the chest Resp Effort & Inspection: normal respiratory effort and no audible wheezes Auscultation: clear to auscultation bilaterally, no crackles, no wheezes and lung sounds not diminished Cardio Rate: regular rate Rhythm: regular rhythm Peripheral pulses: radial pulses present and dorsalis pedis present GI Palpation (GI): no masses Auscultation: normal bowel sounds and normoactive bowel sounds Rectal Exam - Female: deferred Skin General skin exam: no rashes or lesions noted Rashes: no rashes Neuro General: No confusion Cranial nerves: Yes Equal, round and reactive pupils present and Yes Normal hearing present Cognition (Neuro): normal cognition Gait exam (Neuro): Normal gait present Motor exam (neuro): 5/5 motor strength present throughout Deep tendon reflexes (DTR's): Right brachioradialis reflex intensity grade: 2+, Left brachioradialis reflex intensity grade: 2+, Right patellar reflex intensity grade: 2+ and Left patellar reflex intensity grade: 2+ Extrem General: No edema Assessment & Plan Assessment & Plan (1) Medicare annual wellness visit, subsequent: Code(s): Z00.00 - Encounter for general adult medical examination without abnormal findings Plan: Patient is advised to eat healthy, keep well hydrated, keep active and have adequate sleep. (2) Colon cancer screening: Code(s): Z12.11 - Encounter for screening for malignant neoplasm of colon Plan: Reminded about Cologuard (3) Osteoporosis: Comment: June 2021 Code(s): M81.0 - Age-related osteoporosis without current pathological fracture Qualifiers: Osteoporosis type: age-related Presence of current pathological fracture: without current pathological fracture Qualified Code(s): M81.0 - Age- related osteoporosis without current pathological fracture Plan: Reminded about repeating bone density (4) GERD (gastroesophageal reflux disease): Code(s): K21.9 - Gastro-esophageal reflux disease without esophagitis Qualifiers: Esophagitis presence: without esophagitis Qualified Code(s): K21.9 - Gastro-esophageal reflux disease without esophagitis Plan: Avoid the foods that causes that usually spicy foods, tomato products, juices, coffee, soda and foods that your sensitive to. After eating do not lie down, a llow 3-4 hours before in lie down. And keep the head of bed above 30 degrees to avoid the acid from going up. Orders: Orders XR DEXA axial skeleton Today M81.0 - Age-related osteoporosis without current pathological fracture UA CC w/rflx Micro + Cult Today I10 - Essential (primary) hypertension, R30.0 - Dysuria Referrals Cologuard Test Z12.11 - Encounter for screening for malignant neoplasm of colon Medications: Refilled kwygmzyyz-hsetrc-xuvklr-petrol 5-0.25-14.4-15 % (Preparation H Rapid Relief- Lidocaine) 1 appl topical TID PRN 28 grams 0RF itching K64.9 - Unspecified hemorrhoids hydrocortisone 2.5% (Proctosol HC) 1 appl [place] BID-QID PRN 30 grams 3RF hemorrhoids K64.9 - Unspecified hemorrhoids Quality Reporting (2019) Depression/Bipolar (159/160/161/177) PHQ-9: Total score: 0 Coding Level of Care Code Medicare Subsequent (G0439) Diagnoses Medicare annual wellness visit, subsequent Z00.00 Colon cancer screening Z12.11 Age-related osteoporosis without current pathological fracture M81.0 Osteoporosis type: age-related Presence of current pathological fracture: without current pathological fracture Gastroesophageal reflux disease without esophagitis K21.9 Esophagitis presence: without esophagitis
== END 2023-11-30 14:49 | disposition home or self-care (01) ==
LOC: HO.HMGH 13:51
PROVIDERS: PCP Internal Medicine; Visit Provider Internal Medicine
DX: K21.9 Gastro-esophageal reflux disease without esophagitis (principal); M81.0 Age-related osteoporosis without current pathological fracture; Z12.11 Encounter for screening for malignant neoplasm of colon
CPT/HCPCS: 99499

== ENCOUNTER 2024-03-24 11:12 | Outpatient (REF) | payer OTHER, SELFPAY ==
--- NOTE | ~2024-03-24 | MM_ITS ---
EXAMINATION: BONE DENSITOMETRY CLINICAL INDICATION: Age-related osteoporosis without current pathological fracture. COMPARISON: Previous BD dated 07/04/2021 and baseline BD dated 01/22/2012. TECHNIQUE: Using a [employer] DXA System (software version: 13.1) manufactured by [employer], dual-energy x-ray absorptiometry was performed of the lumbar spine and left hip. The images are of good technical quality. Summary results are attached. FINDINGS: LEFT FEMUR, NECK: Current: BMD 0.675 g/cm2, Z-score -0.9, T-score -2.6, osteoporosis. Prior: BMD 0.689 g/cm2. Baseline: BMD 0.809 g/cm2. LEFT FEMUR, TOTAL: Current: BMD 0.779 g/cm2, Z-score -0.3, T-score -1.8, osteopenia, 4.7% decrease from previous, 16.6% decrease from baseline (<5% change is not significant). Prior: BMD 0.817 g/cm2. Baseline: BMD 0.934 g/cm2. AP SPINE L1-L4: Current: BMD 1.118 g/cm2, Z-score 1.3, T-score -0.5, normal, 0.4% increase from previous, 9.9% decrease from baseline (<5% change is not significant). Prior: BMD 1.114 g/cm2. Baseline: BMD 1.241 g/cm2. IDENTIFIED RISK FACTORS: Menopause, osteoporosis, right oophorectomy. HISTORY OF FRACTURE: None listed. MEDICATIONS: Calcium supplements or multivitamin, vitamin D . MM/XR DEXA axial skeleton IMPRESSION: 1. DIAGNOSIS: Osteoporosis based on the lowest T-score value of -2.6 in the femoral neck applying World Health Organization criteria. 2. 10-YEAR FRACTURE RISK PREDICTION, FRAX: According to the guidelines, FRAX calculation should only be performed on patients in the osteopenia bone density category. Therefore, FRAX was not performed on this patient. 3. Treatment Recommendations: NOF guidelines recommend consideration for treatment in postmenopausal women and men age 50 and older presenting with the following: -A hip or vertebral (clinical or morphometric) fracture. -T-score less than or equal to -2.5 at the femoral neck or spine after appropriate evaluation to exclude secondary causes. -Low bone mass at the hip or spine and a 10-year fracture probability by FRAX of greater than or equal to 3% for hip fracture or greater than or equal to 20% for major osteoporotic fracture based on the [place] adapted WHO algorithm. 4. Other Recommendations: All treatment decisions require clinical judgment and consideration of individual patient factors, including patient preferences, comorbidities, previous drug use, risk factors not captured in the FRAX model (e.g. frailty, falls, vitamin D deficiency, increased bone turnover, interval significant decline in bone density) and possible under or overestimation of fracture risk by FRAX. Additional medical evaluation for secondary cause of low bone mineral density may be appropriate. FUTURE SCAN RECOMMENDATION: People with diagnosed cases of osteoporosis or at high risk for fracture should have regular bone mineral density tests. For patients eligible for Medicare, routine testing is allowed once every 2 years. The testing frequency can be increased to one year for patients who have rapidly progressing disease, those who are receiving or discontinuing medical therapy to restore bone mass, or have additional risk factors. Electronically signed by: Thao Villalobos MD 03/24/2024 02:58 PM [facility]
== END 2024-03-24 11:13 | disposition home or self-care (01) ==
LOC: HO.MAMMO 11:12
PROVIDERS: PCP Internal Medicine; Visit Provider Internal Medicine
DX: M81.0 Age-related osteoporosis without current pathological fracture (principal)
CPT/HCPCS: 77080

== ENCOUNTER 2024-07-07 09:17 | Outpatient (REF) | payer MEDICARE, SELFPAY ==
--- NOTE | ~2024-07-07 | MM_ITS ---
EXAMINATION: MM DIAGNOSTIC DIGITAL BREAST TOMOSYNTHESIS, BILATERAL Limited right breast ultrasound. CLINICAL INFORMATION: Two-year follow-up for right breast asymmetry and solid mass versus complicated cyst in the right breast at 5:00 on ultrasound. COMPARISON: Mammography: Comparison is made with relevant prior exams. TECHNIQUE: Digital breast mammography with tomosynthesis is performed in both the craniocaudal and mediolateral oblique views along with computer-aided detection (CAD). FINDINGS: There are scattered areas of fibroglandular density (ACR BI-RADS breast composition Category b). Left: There are no significant masses, abnormal calcifications, or other abnormalities. Right: Previously seen focal asymmetry is not seen on today's imaging projections. No suspicious masses calcifications or other abnormal findings. Targeted color Doppler ultrasound demonstrates interval decreased size and hypoechoic oval circumscribed probable complicated cyst at 5:00 3 cm from nipple measuring 2 x 2 x 4 mm. This has decreased in size on follow-up over 2 years and is benign. Results are provided to the patient at time of visit by the technologist. MM/MM tomosynthesis diagnostic BI IMPRESSION: No mammographic or sonographic evidence of malignancy. ASSESSMENT: BI-RADS BI-RADS 2 - Benign Findings RECOMMENDATION: 1 year F/U This patient's information was entered into a reminder system with a target due date for their next mammogram. Electronically signed by: Jessica Robb DO 07/07/2024 10:10 AM EDT
== END 2024-07-07 09:18 | disposition home or self-care (01) ==
LOC: HO.MAMMO 09:17
PROVIDERS: PCP Internal Medicine; Visit Provider Internal Medicine
DX: R92.2 Inconclusive mammogram (principal)
CPT/HCPCS: 76642; 77062; 77066

== ENCOUNTER → 2024-07-07 09:30 | Outpatient (BNV) | payer MEDICARE, SELFPAY | PROVIDERS: PCP Internal Medicine; Visit Provider Internal Medicine | DX: N63.14 Unspecified lump in the right breast, lower inner quadrant (principal) | CPT/HCPCS: 76642; 77066; G0279 ==

== ENCOUNTER 2024-12-01 15:05 | Outpatient (AMB) | payer MEDICARE, OTHER, SELFPAY ==
[2024-12-01 15:07] VITALS: BP 136/78; PULSE 80; TEMP 36.2; O2SAT 95; BMI 21.2
--- NOTE | 2024-12-01 15:07 | A.OFFVIS_ITS ---
Intake Vital Signs 12/01/24 15:07 12/01/24 16:05 Height 5 ft 6 in Weight 131 lb 6 oz BMI 21.2 BP 136/78 138/90 H Blood Pressure Location Lt brachial Lt brachial Position Sitting Sitting Pulse 80 Pulse Source Pulse Oximeter Temp 97.1 F Temp Source Temporal Artery Scan Pulse Oximetry (%) 95 Oxygen Delivery Method Room Air Intake Visit Reasons: [facility] G0439 Allergies codeine Allergy (Unknown, Verified 12/01/24 15:12) Unknown Medication List - Last Reconciled 12/01/24 by Kenneth Gomez MD cholecalciferol (vitamin D3) 25 mcg PO DAILY famotidine (Pepcid) 20 mg PO BEDTIME PRN hydrocortisone 2.5% (Proctosol HC) 1 appl TX BID-QID PRN zsrecduhr-zevptc-byouep-petrol 5-0.25-14.4-15 % (Preparation H Rapid Relief- Lidocaine) 1 appl topical TID PRN loratadine (Claritin) 10 mg PO DAILY vitamin B complex 1 tab PO DAILY HPI V G0439 HPI Details [place] of care Dr. Duffy. [facility] Medical History Colon cancer screening Hemorrhoid Well woman exam Osteopenia Annual physical exam Breast cancer screening RUQ abdominal pain Annual physical exam GERD (gastroesophageal reflux disease) Colonoscopy refused Anxiety Hypertension Osteopenia Vitamin D deficiency Thyroid nodule Surgical History History of right oophorectomy Family History Father Hypertension Mother Breast cancer Colon cancer Sister Ovarian cancer Maternal Grandmother Myocardial infarction Maternal Grandfather Myocardial infarction Paternal Uncle Myocardial infarction Social History Housing: House Alcohol intake: never Patient Tobacco Use Status: Former Tobacco user Tobacco use type: Cigarette Years Smoked: quit 1982, marijuana e-Cigarette/Vaping Use: Never Used Second Hand Smoke Exposure: No service: No Current occupational status: retired Female Reproductive History Menstrual Age of Menarche: 14 Questionnaire Medicare Wellness Checkup [age] What gender do you identify with?: female During the past 4 weeks, how much have you been bothered by emotional problems such as feeling anxious, depressed, irritable, sad or downhearted, and blue?: slightly During the past 4 weeks, has your physical & emotional health limited your social activities with family, friends, neighbors, or groups?: not at all During the past 4 weeks, how much bodily pain have you generally had?: very mild pain During the past 4 weeks, was someone available to help you if you needed & wanted help?: yes, quite a bit During the past 4 weeks, what was the hardest physical activity you could do for at least 2 minutes?: very heavy Can you get to places out of walking distance without help? (For eg., can you travel alone on buses, taxis or drive your car?): Yes Can you go shopping for groceries or clothes without someone's help?: Yes Can you prepare your own meals?: Yes Can you do your housework without help?: Yes Because of any health problems, do you need the help of another person with your personal care needs such as eating, bathing, dressing or getting around the house?: No Can you handle your own money without help?: Yes During the past 4 weeks, how would you rate your health in general?: very good During the past 4 weeks how have things been going for you?: very well; could hardly better Are you having difficulties driving your car?: no Do you always fasten your seat belt when you are in a car?: yes, usually During past 4 weeks, have you been bothered by the following: never: Falling or dizzy when standing up, Sexual problems?, Trouble eating well?, Teeth or denture problems?, Problems using the telephone? and Tiredness or fatigue? Have you fallen 2 or more times in the past year?: No Are you afraid of falling?: No Are you a smoker?: no During the past 4 weeks, how many drinks of wine, beer, or other alcoholic beverages did you have?: no alcohol at all Do you exercise for about 20 minutes 3 or more times a week?: yes, all the time Have you been given information to help with the following?: no: Hazards in your house that might hurt you? and no: Keeping track of your medications? How often do you have trouble taking medicines the way you have been told to take them?: I always take medicine as prescribed How confident are you that you can control & manage most of your health problems?: very confident What is your race?: White PHQ-9 Over the last 2 weeks, how often have you been bothered by any of the following problems? 1. Little interest or pleasure in doing things: not at all 2. Feeling down, depressed, or hopeless: not at all 3. Trouble falling or staying asleep, or sleeping too much: not at all 4. Feeling tired or having little energy: not at all 5. Poor appetite or overeating: not at all 6. Feeling bad about yourself - or that you are a failure or have let yourself or your family down: not at all 7. Trouble concentrating on things, such as reading the newspaper or watching television: not at all 8. Moving or speaking so slowly that other people could have noticed. Or the opposite - being so fidgety or restless that you have been moving around a lot more than usual: not at all 9. Thoughts that you would be better off or of hurting yourself in some way: not at all Total score: 0 Depression Screening Interpretation: Negative Depression Screening Done: Yes 67396 - PHQ-9 Billing: Yes Source: Developed by Drs. iBnu Bolanos, Jordyn Blanchard, Casey Macias and colleagues, with an educational sharif from [employer]. Review of Systems Const Denies poor appetite and Denies weakness Eyes Denies no additional complaints ENT Reports Normal hearing present, Denies dizziness, Denies nasal congestion, Denies tinnitus and Denies sore throat Card Denies chest pain, Denies syncope, Denies rapid heart rate and Denies dyspnea Resp Denies cough and Denies dyspnea GI Denies change in stool character, Reports constipation, Denies diarrhea, Denies nausea and Denies vomiting Denies urinary frequency, Denies difficulty voiding and Denies dysuria Neuro Reports Normal hearing present, Denies confusion, Denies dizziness, Denies syncope and Denies weakness Psych Denies confusion Physical Exam Vital Signs: Last Vital Signs Temp 97.1 F 12/01/24 15:07 Pulse 80 12/01/24 15:07 BP 138/90 H 12/01/24 16:05 Pulse Ox 95 12/01/24 15:07 Oxygen Delivery Method Room Air 12/01/24 15:07 BMI result Body Mass Index 21.2 Const General: alert and awake; No confusion Orientation/consciousness: No confusion HEENT Head: Yes normocephalic Ears: external ears normal and TM's normal bilaterally Face and sinus: Yes normal facial exam Mouth: moist mucous membranes Throat: Yes tonsils normal Eyes Conjunctivae: conjunctivae normal Pupils: Equal, round and reactive pupils present and Pupil accommodation reflex normal Direct Ophthalmoscopy: normal light reflex Neck Neck: No lymphadenopathy Thyroid: Thyroid normal Chest Chest palpation & inspection: normal inspection of the chest Resp Effort & Inspection: normal respiratory effort and no audible wheezes Auscultation: clear to auscultation bilaterally, no crackles, no wheezes and lung sounds not diminished Cardio Rate: regular rate Rhythm: regular rhythm Peripheral pulses: radial pulses present and dorsalis pedis present GI Palpation (GI): no masses Auscultation: normal bowel sounds and normoactive bowel sounds Rectal Exam - Female: deferred Skin General skin exam: no rashes or lesions noted Rashes: no rashes Neuro General: deep tendon reflexes 2+ bilaterally and No confusion Cranial nerves: Yes Equal, round and reactive pupils present, Yes Midline tongue present, Yes Normal hearing present and Yes Ability to bilaterally elevate shoulders present Cognition (Neuro): normal cognition Gait exam (Neuro): Normal gait present Motor exam (neuro): 5/5 motor strength present throughout Deep tendon reflexes (DTR's): Right brachioradialis reflex intensity grade: 2+, Left brachioradialis reflex intensity grade: 2+, Right patellar reflex intensity grade: 2+ and Left patellar reflex intensity grade: 2+ Extrem General: No edema Assessment & Plan Assessment & Plan (1) Medicare annual wellness visit, subsequent: Code(s): Z00.00 - Encounter for general adult medical examination without abnormal findings Plan: Patient is advised to eat healthy, keep well hydrated, keep active and have adequate sleep. (2) Positive colorectal cancer screening using Cologuard test: Code(s): R19.5 - Other fecal abnormalities Plan: Reminded patient about colon cancer screening (3) GERD (gastroesophageal reflux disease): Code(s): K21.9 - Gastro-esophageal reflux disease without esophagitis Qualifiers: Esophagitis presence: without esophagitis Qualified Code(s): K21.9 - Gastro-esophageal reflux disease without esophagitis Plan: Avoid the foods that causes that usually spicy foods, tomato products, juices, coffee, soda and foods that your sensitive to. After eating do not lie down, allow 3-4 hours before in lie down. And keep the head of bed above 30 degrees to avoid the acid from going up. (4) Hypertension: Code(s): I10 - Essential (primary) hypertension Qualifiers: Hypertension type: essential hypertension Qualified Code(s): I10 - Essential (primary) hypertension Plan: Patient not on any medication and blood pressure has been under control (5) Skin cancer: Comment: [place] Code(s): C44.90 - Unspecified malignant neoplasm of skin, unspecified Plan History of Present Illness The patient is a 69-year-old female presenting for an annual wellness visit. The patient has a history of hypertension, which is currently well-controlled without medication. She reports that her blood pressure readings have been stable, and she has not experienced any symptoms such as dizziness or fainting. The patient also has a history of gastroesophageal reflux disease (GERD), for which she occasionally takes Pepcid to manage symptoms. She notes that stress and certain foods can exacerbate her symptoms, but she manages these triggers effectively. Osteoporosis is another condition in her medical history, with the last bone density scan conducted in March 2024. She has not reported any falls or fractures recently. The patient has a history of basal cell carcinoma, with dermatology follow-up last conducted in November 2023. She underwent radiation therapy for skin cancer on her nose and is awaiting further treatment for a squamous lesion on her lip. A positive Cologuard test was noted in August 2024, raising concerns for colorectal cancer screening. The patient has hemorrhoids, which may have contributed to the positive result, but further evaluation is planned. The patient reports hearing loss, primarily due to tinnitus, and has not yet pursued hearing aids. Health Maintenance - Colon cancer screening: Positive Cologuard test in August 2024, further evaluation planned - Bone density scan: Last conducted in March 2024 - Dermatology follow-up: Last seen in November 2023 for basal cell carcinoma - Mammogram: Conducted in June 2024 - Blood work: Last done in June 2023, normal results with low normal potassium - Vaccinations: Received shingles vaccine recently Social History - Family status: Lives with two grown sons, experiencing stress due to family dynamics - Substance use: Does not consume alcohol or tobacco, uses marijuana for anxiety - Nutrition: Reports high water intake, occasional unhealthy eating habits - Exercise: No specific exercise routine mentioned Review of Systems - Cardiovascular: Denies chest pain, dizziness, or fainting - Gastrointestinal: Reports occasional heartburn, denies nausea or vomiting - Musculoskeletal: Denies falls or fractures - Neurological: Reports hearing loss due to tinnitus, denies headaches or dizziness - Respiratory: Denies shortness of breath or cough Physical Exam General: Cooperative, healthy appearing, comfortable, no acute distress and well developed Orientation: Patient oriented x3 Limitations: No limitations Head: Normal to inspection Ears: Hearing grossly normal bilaterally Nose: Normal external nose present Face and sinus: Normal facial exam Eyes: Appearance normal, both eyes and all related structures Neck: Normal visual inspection and Yes full ROM Respiratory: Normal respiratory effort and able to speak in complete sentences. Clear to auscultation bilaterally Cardiovascular: Regular rate and rhythm. Normal S1 and S2 GI: Normal to inspection. Soft to palpation and nontender Skin: No rashes or lesions noted Neuro: Patient oriented x3 Extremities: Normal to inspection Results - Labs: Normal blood count, normal electrolytes with low normal potassium, normal renal function, normal blood sugar, normal liver function, LDL cholesterol at 118 mg/dL, normal B12, vitamin D, folic acid, and thyroid levels - Screening Tests: Positive Cologuard test in August 2024 - Imaging: Mammogram conducted in June 2024 Plan During the visit, the patient was reminded of the importance of colorectal cancer screening following a positive Cologuard test. Further evaluation is planned to rule out any significant pathology, considering the presence of hemorrhoids which may have influenced the test result. The patient's hypertension is currently well-controlled without medication, and no changes to her management plan are necessary at this time. She is advised to continue monitoring her blood pressure regularly. For GERD, the patient is advised to continue using Pepcid as needed and to avoid known dietary triggers. Lifestyle modifications, including stress management, are recommended to help control symptoms. The patient is encouraged to follow up with dermatology for ongoing management of her skin cancer, particularly the squamous lesion on her lip. Radiation therapy has been effective for previous lesions, and further treatment is anticipated. Hearing loss due to tinnitus is acknowledged, and the patient is advised to consider hearing aids if her condition worsens. Patient was informed and verbally consented to the use of an ambient scribe for clinic note documentation during this visit. Discussion Notes I discussed with the patient the significance of the positive Cologuard test and the need for further evaluation to rule out colorectal cancer. We talked about the possibility of hemorrhoids affecting the test result and the importance of follow-up. I advised her to continue monitoring her blood pressure and to use Pepcid as needed for GERD, emphasizing the avoidance of dietary triggers and stress management. We also discussed the ongoing management of her skin cancer, with a recommendation to follow up with dermatology for the squamous lesion on her lip. Regarding her hearing loss, I suggested considering hearing aids if her symptoms worsen. Patient Instructions - Schedule follow-up for colorectal cancer screening evaluation. - Monitor blood pressure regularly and report any significant changes. - Use Pepcid as needed for GERD and avoid known dietary triggers. - Follow up with dermatology for skin cancer management. - Consider hearing aids if hearing loss worsens. Orders: Orders Complete Blood Count Auto Diff Today I10 - Essential (primary) hypertension Comprehensive Met. Panel Today I10 - Essential (primary) hypertension Free T4 (Free Thyroxine) Today I10 - Essential (primary) hypertension Vitamin D 25-OH Total Today I10 - Essential (primary) hypertension UA CC w/rflx Micro + Cult Today I10 - Essential (primary) hypertension, R30.0 - Dysuria Thyroid Stimulating Hormone Today I10 - Essential (primary) hypertension Lipid Panel Today E78.00 - Pure hypercholesterolemia, unspecified, I10 - Essential (primary) hypertension Vitamin B12 and Folate Today I10 - Essential (primary) hypertension Magnesium Today R19.5 - Other fecal abnormalities Referrals Gastroenterology Referral R19.5 - Other fecal abnormalities Quality Reporting (2019) Depression/Bipolar (159/160/161/177) PHQ-9: Total score: 0 Coding Level of Care Code Medicare Subsequent (G0439) Diagnoses Medicare annual wellness visit, subsequent Z00.00 Positive colorectal cancer screening using Cologuard test R19.5 Gastroesophageal reflux disease without esophagitis K21.9 Esophagitis presence: without esophagitis Essential hypertension I10 Hypertension type: essential hypertension Skin cancer C44.90 Additional Codes PHQ-9 - 41921 - PHQ-9 Billing: Yes ([id number])
[2024-12-01 16:05] VITALS: BP 138/90
== END 2024-12-01 16:01 | disposition home or self-care (01) ==
LOC: HO.HMCH 15:06
PROVIDERS: PCP Internal Medicine; Visit Provider Internal Medicine
DX: Z00.00 Encounter for general adult medical examination without abnormal findings (principal); R19.5 Other fecal abnormalities; K21.9 Gastro-esophageal reflux disease without esophagitis; I10 Essential (primary) hypertension; C44.90 Unspecified malignant neoplasm of skin, unspecified

== ENCOUNTER → 2024-12-01 15:05 | Outpatient (BNVA) | payer MEDICARE, SELFPAY | PROVIDERS: PCP Internal Medicine; Visit Provider Internal Medicine | DX: Z00.00 Encounter for general adult medical examination without abnormal findings (principal); R19.5 Other fecal abnormalities; K21.9 Gastro-esophageal reflux disease without esophagitis; I10 Essential (primary) hypertension; C44.90 Unspecified malignant neoplasm of skin, unspecified; M18.0 Bilateral primary osteoarthritis of first carpometacarpal joints; E78.00 Pure hypercholesterolemia, unspecified | CPT/HCPCS: 96127 ==